=== PATIENT | male | born 2000 | race Caucasian/White ===

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

== ENCOUNTER → 2022-01-07 | Outpatient (CLI) | payer MEDICAID ==
[2022-01-07 10:04] LABS: HEMATOCRIT 47.9 % (42.0-52.0); HEMOGLOBIN 16.1 g/dl (13.5-17.5); MEAN CORPUSCULAR HEMOGLOBIN 31.3 pg (27.0-33.0); MEAN CORPUSCULAR HGB CONC 33.6 g/dl (32.0-36.5); MEAN CORPUSCULAR VOLUME 93.2 fl (80.0-96.0); PLATELET COUNT, AUTOMATED 171 10^3/uL (150-450); RED BLOOD COUNT 5.14 10^6/uL (4.30-6.10); WHITE BLOOD COUNT 6.2 10^3/uL (4.0-10.0)
[2022-01-07 10:28] LABS: ALBUMIN 4.2 GM/DL (3.2-5.2); ALT/SGPT 58 U/L (12-78); BILIRUBIN,TOTAL 0.4 MG/DL (0.2-1.0); BLOOD UREA NITROGEN 22 MG/DL (7-18); CALCIUM LEVEL 8.8 MG/DL (8.5-10.1); CARBON DIOXIDE LEVEL 25 MEQ/L (21-32); CHLORIDE LEVEL 112 MEQ/L (98-107); CHOLESTEROL LEVEL 168 MG/DL (<200); CHOLESTEROL RISK RATIO 5.793 (<5); CREATININE FOR GFR 1.18 MG/DL (0.70-1.30); FREE T4 0.91 NG/DL (0.78-1.33); GLUCOSE, FASTING 98 MG/DL (70-100); HDL CHOLESTEROL 29 MG/DL (>40); LDL CHOLESTEROL 94 MG/DL (<100); NON-HDL-C 139 MG/DL; POTASSIUM SERUM 3.7 MEQ/L (3.5-5.1); SODIUM LEVEL 142 MEQ/L (136-145); TOTAL PROTEIN 7.6 GM/DL (6.4-8.2); TRIGLYCERIDES LEVEL 224 MG/DL (<150)
== END ==
LOC: M WUC 08:07
PROVIDERS: ATTEND Physician Assistant Medical
DX: Z13.29 Encounter for screening for other suspected endocrine disorder (principal); Z13.220 Encounter for screening for lipoid disorders; G47.00 Insomnia, unspecified; F98.3 Pica of infancy and childhood

== ENCOUNTER → 2022-08-26 | Outpatient (CLI) | payer MEDICAID ==
[2022-08-26 14:18] LABS: HEMATOCRIT 47.8 % (42.0-52.0); HEMOGLOBIN 15.9 g/dl (13.5-17.5); MEAN CORPUSCULAR HEMOGLOBIN 31.1 pg (27.0-33.0); MEAN CORPUSCULAR HGB CONC 33.3 g/dl (32.0-36.5); MEAN CORPUSCULAR VOLUME 93.4 fl (80.0-96.0); PLATELET COUNT, AUTOMATED 203 10^3/uL (150-450); RED BLOOD COUNT 5.12 10^6/uL (4.30-6.10); WHITE BLOOD COUNT 6.7 10^3/uL (4.0-10.0)
[2022-08-26 15:00] LABS: ALBUMIN 4.3 G/DL (3.2-5.2); ALKALINE PHOSPHATASE 82 U/L (46-116); ALT/SGPT 49 U/L (7.0-40); AST/SGOT 23 U/L (<34); BILIRUBIN,TOTAL 0.4 MG/DL (0.3-1.2); BLOOD UREA NITROGEN 19 MG/DL (9-23); CARBON DIOXIDE LEVEL 23 MMOL/L (20-31); CHLORIDE LEVEL 111 MMOL/L (98-107); CHOLESTEROL LEVEL 176 MG/DL (<200); CHOLESTEROL RISK RATIO 5.01 (<5); CREATININE FOR GFR 1.09 MG/DL (0.70-1.30); FREE T4 1.09 NG/DL (0.89-1.76); GLOMERULAR FILTRATION RATE > 60.0 (>60); GLUCOSE, FASTING 95 MG/DL (60-100); HDL CHOLESTEROL 35.1 MG/DL (>40); LDL CHOLESTEROL 120.1 MG/DL (<100); NON-HDL-C 141 MG/DL; POTASSIUM SERUM 3.9 MMOL/L (3.5-5.1); SODIUM LEVEL 143 MMOL/L (136-145); THYROID STIMULATING HORMONE 1.814 uIU/ML (0.55-4.78); TOTAL PROTEIN 7.4 G/DL (5.7-8.2); TRIGLYCERIDES LEVEL 104 MG/DL (<150)
== END ==
LOC: M WUC 09:27
PROVIDERS: ATTEND Physician Assistant Medical
DX: E66.3 Overweight (principal); Z68.25 Body mass index [BMI] 25.0-25.9, adult

== ENCOUNTER → 2022-12-25 | Outpatient (CLI) | payer MEDICAID ==
[2022-12-25 12:23] LABS: ALBUMIN 3.9 G/DL (3.2-5.2); ALKALINE PHOSPHATASE 75 U/L (46-116); ALT/SGPT 37 U/L (7.0-40); AST/SGOT < 8 U/L (<34); BILIRUBIN,TOTAL 0.3 MG/DL (0.3-1.2); BLOOD UREA NITROGEN 15 MG/DL (9-23); CALCIUM LEVEL 8.7 MG/DL (8.5-10.1); CARBON DIOXIDE LEVEL 23 MMOL/L (20-31); CHLORIDE LEVEL 113 MMOL/L (98-107); CHOLESTEROL LEVEL 149 MG/DL (<200); CREATININE FOR GFR 0.91 MG/DL (0.70-1.30); FREE T4 1.01 NG/DL (0.89-1.76); GLOMERULAR FILTRATION RATE > 60.0 (>60); GLUCOSE, FASTING 98 MG/DL (60-100); HDL CHOLESTEROL 28.6 MG/DL (>40); LDL CHOLESTEROL 92.6 MG/DL (<100); NON-HDL-C 120.4 MG/DL; SODIUM LEVEL 142 MMOL/L (136-145); THYROID STIMULATING HORMONE 1.308 uIU/ML (0.55-4.78); TOTAL PROTEIN 6.6 G/DL (5.7-8.2); TRIGLYCERIDES LEVEL 139 MG/DL (<150)
== END ==
LOC: M WUC 09:49
PROVIDERS: ATTEND Physician Assistant Medical
DX: R63.5 Abnormal weight gain (principal); R94.5 Abnormal results of liver function studies; E78.5 Hyperlipidemia, unspecified

== ENCOUNTER → 2023-07-09 | Outpatient (CLI) | payer MEDICAID ==
[2023-07-09 17:10] LABS: HEMATOCRIT 40.9 % (42.0-52.0); HEMOGLOBIN 13.4 g/dl (13.5-17.5); MEAN CORPUSCULAR HEMOGLOBIN 30.5 pg (27.0-33.0); MEAN CORPUSCULAR HGB CONC 32.8 g/dl (32.0-36.5); MEAN CORPUSCULAR VOLUME 93.2 fl (80.0-96.0); PLATELET COUNT, AUTOMATED 254 10^3/uL (150-450); RED BLOOD COUNT 4.39 10^6/uL (4.30-6.10); WHITE BLOOD COUNT 8.4 10^3/uL (4.0-10.0)
[2023-07-09 17:23] LABS: APPEARANCE, URINE CLEAR (CLEAR); BACTERIA, URINE AUTO 1+ (NEGATIVE); BILIRUBIN, URINE AUTO NEGATIVE (NEGATIVE); BLOOD, URINE BLOOD NEGATIVE (NEGATIVE); COLOR, URINE AMBER (YELLOW); GLUCOSE, URINE (UA) AUTO NEGATIVE (NEGATIVE); KETONE, URINE AUTO TRACE mg/dL (NEGATIVE); LEUKOCYTE ESTERASE, URINE AUTO TRACE (NEGATIVE); MUCUS, URINE SMALL (NEGATIVE); NITRITE, URINE AUTO NEGATIVE (NEGATIVE); PROTEIN, URINE AUTO NEGATIVE (NEGATIVE); RBC, URINE AUTO 1 /HPF (0-3); SPECIFIC GRAVITY URINE AUTO 1.025 (1.002-1.035); SQUAMOUS EPITHELIAL CELL UR AU 0 /HPF (0-6); WBC, URINE AUTO 4 /HPF (0-3)
[2023-07-09 17:40] LABS: ALBUMIN 3.8 G/DL (3.2-5.2); ALKALINE PHOSPHATASE 81 U/L (46-116); ALT/SGPT 36 U/L (7.0-40); AST/SGOT 18 U/L (<34); BILIRUBIN,TOTAL 0.4 MG/DL (0.3-1.2); BLOOD UREA NITROGEN 16 MG/DL (9-23); CALCIUM LEVEL 8.8 MG/DL (8.5-10.1); CARBON DIOXIDE LEVEL 27 MMOL/L (20-31); CHLORIDE LEVEL 111 MMOL/L (98-107); GLOMERULAR FILTRATION RATE > 60.0 (>60); GLUCOSE, FASTING 79 MG/DL (60-100); POTASSIUM SERUM 3.8 MMOL/L (3.5-5.1); SODIUM LEVEL 141 MMOL/L (136-145); TOTAL PROTEIN 6.5 G/DL (5.7-8.2)
== END ==
LOC: M WUC 14:01
PROVIDERS: ATTEND Physician Assistant Medical
DX: R35.0 Frequency of micturition (principal); K59.00 Constipation, unspecified; R79.89 Other specified abnormal findings of blood chemistry

== ENCOUNTER 2024-01-24 16:59 | Emergency (ER) | payer MEDICAID ==
[~2024-01-24] VITALS: Ht 175.3 cm; Wt 100.0 kg
[2024-01-24 17:34] LABS: HEMATOCRIT 43.6 % (42.0-52.0); HEMOGLOBIN 14.7 g/dl (13.5-17.5); MEAN CORPUSCULAR HEMOGLOBIN 30.8 pg (27.0-33.0); MEAN CORPUSCULAR HGB CONC 33.7 g/dl (32.0-36.5); MEAN CORPUSCULAR VOLUME 91.4 fl (80.0-96.0); PLATELET COUNT, AUTOMATED 234 10^3/uL (150-450); RED BLOOD COUNT 4.77 10^6/uL (4.30-6.10); WHITE BLOOD COUNT 8.7 10^3/uL (4.0-10.0)
[2024-01-24] MEDS ORDERED: MELA5TAB7 PO (18:15)
[2024-01-24] MEDS ORDERED: DEBR6.5S4 AU (18:15)
[2024-01-24] MEDS ORDERED: CLAR10CA3 PO (18:15)
[2024-01-24] MEDS ORDERED: BENZ2.5G TOP (18:15)
[2024-01-24] MEDS ORDERED: LATU80TA2 PO (18:15)
[2024-01-24] MEDS ORDERED: FLUT15.820 NARES (18:15)
[2024-01-24] MEDS ORDERED: BUSP10TA PO (18:15)
[2024-01-24] MEDS: LORazepam 2 MG TAB PO ONE (18:27)
[2024-01-24 18:40] LABS: ETHYL ALCOHOL (ETHANOL) < 0.003 % (0.000-0.010)
[2024-01-24 18:42] LABS: ALBUMIN 4.3 G/DL (3.2-5.2); ALKALINE PHOSPHATASE 99 U/L (46-116); ALT/SGPT 55 U/L (7.0-40); AST/SGOT 31 U/L (<34); BILIRUBIN,DIRECT 0.2 MG/DL (<0.4); BILIRUBIN,TOTAL 0.5 MG/DL (0.3-1.2); BLOOD UREA NITROGEN 14 MG/DL (9-23); CALCIUM LEVEL 9.3 MG/DL (8.5-10.1); CARBON DIOXIDE LEVEL 22 MMOL/L (20-31); CHLORIDE LEVEL 112 MMOL/L (98-107); CREATININE FOR GFR 1.04 MG/DL (0.70-1.30); GLOMERULAR FILTRATION RATE > 60.0 (>60); GLUCOSE, FASTING 93 MG/DL (60-100); POTASSIUM SERUM 4.2 MMOL/L (3.5-5.1); SALICYLATE LEVEL < 3.0 MG/DL (<30); SODIUM LEVEL 142 MMOL/L (136-145); TOTAL PROTEIN 7.3 G/DL (5.7-8.2)
[2024-01-24 18:45] LABS: THYROID STIMULATING HORMONE 2.312 uIU/ML (0.55-4.78)
[2024-01-24] MEDS: risperiDONE 1MG/1ML SOLN ORAL SYRINGE PO ONE (20:49)
[2024-01-25] MEDS: RAMELTEON 8 MG TAB (ROZEREM) PO ONE (06:31)
[2024-01-25] MEDS ORDERED: busPIRone 10 MG TAB PO SCH (09:00)
[2024-01-25] MEDS ORDERED: ALPR0.25 PO (09:31)
[2024-01-25] MEDS ORDERED: TRAZ-189 PO (09:31)
[2024-01-25] MEDS ORDERED: PAXI40TA12 PO (09:31)
[2024-01-25] MEDS ORDERED: IBUP200C25 PO (09:31)
[2024-01-25] MEDS ORDERED: DESI13CR2 TOP (09:31)
[2024-01-25] MEDS ORDERED: HYDR-3363 PO (09:31)
[2024-01-25] MEDS ORDERED: QUET100T2 PO (09:31)
[2024-01-25] MEDS ORDERED: ONDA-282 PO (09:31)
[2024-01-25] MEDS ORDERED: APAP325T4 PO (09:31)
[2024-01-25] MEDS ORDERED: NEOM28OI TOP (09:31)
[2024-01-25] MEDS ORDERED: BUSP10TA PO (09:31)
[2024-01-25] MEDS ORDERED: HOME MED LIST COMPLETE! XX SCH (09:35)
[2024-01-25] MEDS: TOPIRAMATE (TopAMAX) 100 MG TAB PO SCH (10:28)
[2024-01-25] MEDS: LORATADINE 10 MG TAB PO SCH (10:29)
[2024-01-25] MEDS: PARoxetine 20MG TABLET PO SCH (10:29)
[2024-01-25] MEDS: TOPIRAMATE (TopAMAX) 25 MG TAB PO SCH (10:29)
[2024-01-25] MEDS: busPIRone 10 MG TAB PO SCH ×2 (10:29→19:32)
[2024-01-25] MEDS: ALPRAZolam 0.25 MG TAB PO PRN (14:57)
[2024-01-25] MEDS: LURASIDONE HCL 40MG TAB (LATUDA) PO SCH (19:31)
[2024-01-25] MEDS: traZODone 100 MG TAB PO SCH (19:32)
[2024-01-25 20:10] VITALS: BP 137/75; TEMP 98; O2SAT 99
[2024-01-25] MEDS: QUEtiapine FUMARATE 100 MG TAB PO SCH (20:49)
[2024-01-25] MEDS ORDERED: QUEtiapine FUMARATE 100 MG TAB PO SCH (21:00)
[2024-01-25] MEDS: hydrOXYzine 50 MG TAB PO SCH (21:00)
[2024-01-25] MEDS ORDERED: CARBAMIDE PEROXIDE 6.5% OTIC SOLN 15ML AU SCH (21:00)
[2024-01-26] MEDS: TOPIRAMATE (TopAMAX) 25 MG TAB PO SCH (08:00)
[2024-01-26] MEDS: LORazepam 2 MG TAB PO ONE (12:48)
[2024-01-27] MEDS ORDERED: HYDR50TA70 PO (20:54)
[2024-01-27] MEDS ORDERED: SERO200T PO (20:54)
[2024-01-27] MEDS ORDERED: TOPA50TA8 PO (20:54)
== END 2024-01-26 18:01 | disposition home or self-care (01) ==
LOC: M ED 16:59
DX: F84.0 Autistic disorder (principal); F50.89 Other specified eating disorder; Z79.899 Other long term (current) drug therapy

== ENCOUNTER 2024-01-27 16:33 | Emergency (ER) | payer MEDICAID ==
[~2024-01-27] VITALS: Ht 175.3 cm; Wt 100.0 kg
[~2024-01-27 16:33] MED LIST changes: +ALPR0.25 PO; +APAP325T4 PO; +BENZ2.5G TOP; +BUSP10TA PO; +CLAR10CA3 PO; +DEBR6.5S4 AU; +DESI13CR2 TOP; +FLUT15.820 NARES; +HYDR-3363 PO; +IBUP200C25 PO; +LATU80TA2 PO; +MELA5TAB7 PO; +NEOM28OI TOP; +ONDA-282 PO; +PAXI40TA12 PO; +QUET100T2 PO; +TRAZ-189 PO
[2024-01-27] MEDS ORDERED: TOPA50TA8 PO (20:54)
[2024-01-27] MEDS ORDERED: SERO200T PO (20:54)
[2024-01-27] MEDS ORDERED: HYDR50TA70 PO (20:54)
[2024-01-27] MEDS: busPIRone 10 MG TAB PO SCH (21:14)
[2024-01-27] MEDS: hydrOXYzine 50 MG TAB PO SCH (21:14)
[2024-01-27] MEDS: QUEtiapine FUMARATE 200 MG TAB PO SCH (21:15)
[2024-01-27] MEDS: LURASIDONE HCL 40MG TAB (LATUDA) PO SCH (21:15)
[2024-01-27] MEDS: TOPIRAMATE (TopAMAX) 100 MG TAB PO SCH (21:21)
[2024-01-27] MEDS: diphenhydrAMINE 25MG CAP PO ONE (21:44)
[2024-01-27] MEDS: ONDANSETRON 4MG ORAL DISINTEGRATING TAB PO ONE (23:23)
[2024-01-28] MEDS: LORazepam 2 MG/ML 1ML VIAL IM STA (02:23)
[2024-01-28] MEDS: ALPRAZolam 0.25 MG TAB PO PRN (03:33)
[2024-01-28] MEDS: busPIRone 10 MG TAB PO SCH (08:00)
[2024-01-28] MEDS ORDERED: RISP1TAB42 PO (09:38)
[2024-01-28] MEDS ORDERED: HYDR-3363 PO (09:38)
[2024-01-28] MEDS ORDERED: TOPI25TA10 PO (09:38)
[2024-01-28] MEDS ORDERED: HOME MED LIST COMPLETE! XX SCH (10:15)
[2024-01-28] MEDS: PARoxetine 20MG TABLET PO SCH (11:52)
[2024-01-28] MEDS: LORATADINE 10 MG TAB PO SCH (11:52)
[2024-01-28] MEDS: TOPIRAMATE (TopAMAX) 25 MG TAB PO SCH (11:53)
[2024-01-28 12:22] LABS: HEMATOCRIT 46.4 % (42.0-52.0); HEMOGLOBIN 15.2 g/dl (13.5-17.5); MEAN CORPUSCULAR HEMOGLOBIN 30.4 pg (27.0-33.0); MEAN CORPUSCULAR HGB CONC 32.8 g/dl (32.0-36.5); MEAN CORPUSCULAR VOLUME 92.8 fl (80.0-96.0); PLATELET COUNT, AUTOMATED 226 10^3/uL (150-450)
[2024-01-28 12:49] LABS: ETHYL ALCOHOL (ETHANOL) < 0.003 % (0.000-0.010)
[2024-01-28 12:51] LABS: SALICYLATE LEVEL < 3.0 MG/DL (<30)
[2024-01-28 12:56] LABS: ALBUMIN 4.3 G/DL (3.2-5.2); ALKALINE PHOSPHATASE 104 U/L (46-116); ALT/SGPT 66 U/L (7.0-40); AST/SGOT 29 U/L (<34); BILIRUBIN,DIRECT 0.2 MG/DL (<0.4); BILIRUBIN,TOTAL 0.8 MG/DL (0.3-1.2); BLOOD UREA NITROGEN 12 MG/DL (9-23); CALCIUM LEVEL 9.4 MG/DL (8.5-10.1); CARBON DIOXIDE LEVEL 26 MMOL/L (20-31); CHLORIDE LEVEL 110 MMOL/L (98-107); GLOMERULAR FILTRATION RATE > 60.0 (>60); GLUCOSE, FASTING 100 MG/DL (60-100); SODIUM LEVEL 140 MMOL/L (136-145); THYROID STIMULATING HORMONE 1.843 uIU/ML (0.55-4.78); TOTAL PROTEIN 7.4 G/DL (5.7-8.2)
[2024-01-28 15:31] LABS: METHADONE URINE NEGATIVE (NEGATIVE); OPIATES URINE NEGATIVE (NEGATIVE); PHENCYCLIDINE URINE NEGATIVE (NEGATIVE)
[2024-01-28 15:32] LABS: AMPHETAMINES LEVEL URINE NEGATIVE (NEGATIVE); BARBITURATES URINE NEGATIVE (NEGATIVE); BENZODIAZEPINES URINE NEGATIVE (NEGATIVE); CANNABINOIDS URINE NEGATIVE (NEGATIVE); COCAINE METABOLITE URINE NEGATIVE (NEGATIVE)
[2024-01-28] MEDS: ONDANSETRON 4MG ORAL DISINTEGRATING TAB PO ONE (16:55)
[2024-01-29 18:17] VITALS: BP 131/72; TEMP 97.4; O2SAT 95
== END 2024-01-29 18:24 | disposition home or self-care (01) ==
LOC: M ED 16:33
DX: F84.0 Autistic disorder (principal); R41.89 Other symptoms and signs involving cognitive functions and awareness; Z79.899 Other long term (current) drug therapy
CPT/HCPCS: 80048; 80076; 80143; 80307; 82077; 84443; 85027; 96372; 99284; J2060

== ENCOUNTER 2024-02-11 09:38 | Emergency (ER) | payer MEDICAID ==
[~2024-02-11 09:38] MED LIST changes: +HYDR50TA70 PO; +RISP1TAB42 PO; +SERO200T PO; +TOPA50TA8 PO; +TOPI25TA10 PO
[2024-02-11 10:06] VITALS: BP 132/67; TEMP 98.5; O2SAT 96
== END 2024-02-11 11:03 | disposition home or self-care (01) ==
LOC: M ED 09:38
DX: F84.0 Autistic disorder (principal); F79 Unspecified intellectual disabilities; Z79.899 Other long term (current) drug therapy

== ENCOUNTER → 2025-04-04 | Outpatient (CLI) | payer MEDICAID ==
[~2025-04-04] MED LIST changes: +MELA5TAB44 PO; -MELA5TAB7 PO; +TOPI-256 PO; -TOPI25TA10 PO
[2025-04-04 14:20] LABS: PLATELET COUNT, AUTOMATED 229 10^3/uL (150-450)
[2025-04-04 14:43] LABS: FREE T4 1.11 NG/DL (0.89-1.76)
[2025-04-04 14:45] LABS: ALT/SGPT 46 U/L (7.0-40); AST/SGOT 23 U/L (<34); CALCIUM LEVEL 9.1 MG/DL (8.5-10.1); CARBON DIOXIDE LEVEL 26 MMOL/L (20-31); CHLORIDE LEVEL 107 MMOL/L (98-107); CHOLESTEROL LEVEL 165 MG/DL (<200); CHOLESTEROL RISK RATIO 5.95 (<5); CREATININE FOR GFR 1.06 MG/DL (0.70-1.30); GLOMERULAR FILTRATION RATE > 90.0 (>60); LDL CHOLESTEROL 96.9 MG/DL (<100); NON-HDL-C 137.3 MG/DL; POTASSIUM SERUM 3.9 MMOL/L (3.5-5.1); SODIUM LEVEL 145 MMOL/L (136-145); TRIGLYCERIDES LEVEL 202 MG/DL (<150)
== END ==
LOC: M LABDRWAD 10:49
PROVIDERS: ATTEND Physician Assistant Medical
DX: R74.01 Elevation of levels of liver transaminase levels (principal); R63.4 Abnormal weight loss; L65.9 Nonscarring hair loss, unspecified; E78.00 Pure hypercholesterolemia, unspecified